=== PATIENT | male | born 1975 | race African-American/Black ===

== ENCOUNTER 2023-08-14 08:14 | Outpatient (CLI) | payer OTHER, SELFPAY ==
--- NOTE | 2023-08-17 15:04 | WPDHOMESLEEP ---
Sleep Study - Home Unattended Date of Study: 08/14/23 Ordering Provider: Supa Souza, HR CONSULTANT Interpreting Provider: Arabella Feng MD Home Sleep Study Type: Watch PAT Height: 1.7 m Weight: 129.274 kg Body Mass Index: 44.6 Neck Circumference (inches): 18 [place]: 1 Reason for Sleep Study Snoring, witnessed apneas, restless sleep and excessive daytime sleepiness Sleep History Marv Bergman is a 48-year-old man with snoring and excessive daytime sleepiness. He did not complete the usual sleep questionnaire, however his office note contains several comments regarding his sleep. He complained of snoring, witnessed apneas, restless sleep and waking up not feeling rested. He has excessive daytime sleepiness. He also complained of excessive movements of his limbs during sleep. He was started on Atrovent nasal spray 0.03% 2 sprays each nostril twice a day. His medical comorbidities include hypertension, congestive heart failure, diabetes with neuropathy. He had a prior sleep study in 2020 at [facility] with symptoms worsening since then. His body mass index is currently 44.63. He had a PAP machine that he stopped using during the recent recall. He does use a sleeping pill at night, trazodone. Habits:??Tobacco: former smoker Alcohol:none PMFSH Past Medical History Medical History Adrenal nodule Congestive heart failure History of blood transfusion Hyperlipidemia Hypertension Microalbuminuria Obesity Peripheral neuropathy Type 2 diabetes mellitus Family History Family History Other Cerebrovascular accident Coronary artery disease Hypertension Social History Social History Smoking packs per day: 2 Smoking cigarettes per day: 40.0 Years smoked: 30 Smoking pack-years: 60.00 Smoking status: Former smoker Tobacco type: cigarettes Alcohol intake: never Substance use: never Do You Feel Safe in your Home?: Yes Lack of Transportation: No Lack of Food: Never True Current Housing: I Have Housing Concerned About Future Housing: No Difficulty Paying Gas/Electric Bills: No Difficulty Paying for Meds: No Currently Unemployed: YES Education: High School Diploma/GED Difficulty w/ Childcare or Family Care: No Medications Home Medications Medication Instructions Recorded Confirmed Type furosemide 40 mg tablet 40 mg PO QAM 01/13/20 07/03/23 History gabapentin 400 mg capsule 400 mg PO BID 01/13/20 07/03/23 History lisinopril 40 mg tablet 40 mg PO DAILY 01/13/20 07/03/23 History naproxen sodium 220 mg capsule 440 mg PO Q12H 01/13/20 07/03/23 History (Aleve) dapagliflozin propanediol 10 mg See Rx Instructions .Route 03/27/23 07/03/23 Rx tablet (Farxiga) .COMPLEX #90 tabs blood sugar diagnostic (OneTouch #100 ea 07/03/23 07/03/23 Rx Ultra Test strips) blood-glucose sensor (Pylba G7 #9 ea 07/03/23 07/03/23 Rx Sensor device) dexamethasone 0.5 mg tablet 1 mg PO ONCE #2 tabs 07/03/23 07/03/23 Rx glucagon 1 mg/0.2 mL subcutaneous 1 mg (0.2 mL) subcut ONCE #0.4 mL 07/03/23 07/03/23 Rx auto-injector (Gvoke HypoPen 2-Pack) glucose 4 gram chewable tablet 16 g PO Q15M PRN hypoglycemia #60 07/03/23 07/03/23 Rx (Dex4 Glucose) tabs insulin aspart 10 unit subcut TIDWMEAL #45 mL 07/03/23 07/03/23 Rx (niacinamide)(U-100) 100 unit/mL(3 mL) subcutaneous pen (Fiasp FlexTouch U-100 Insulin) insulin degludec 200 unit/mL (3 30 unit (0.15 mL) subcut QAM #18 mL 07/03/23 07/03/23 Rx mL) subcutaneous pen (Tresiba FlexTouch U-200 insulin) lancets 33 gauge (OneTouch Delica #100 ea 07/03/23 07/03/23 Rx Plus Lancet) blood-glucose meter (OneTouch #1 ea 07/04/23 Rx Verio Flex Meter) pen needle, diabetic 32 gauge x #400 ea 07/04/23 Rx 5/32 (BD Ultra-Fine Susan Pen Needle)
[2023-08-17 15:27] VITALS: BMI 44.6
== END 2023-08-15 07:30 | disposition home or self-care (01) ==
LOC: ANHCSM 08:16
PROVIDERS: PCP Family Medicine; Visit Provider Nurse Practitioner Family
DX: G47.33 Obstructive sleep apnea (adult) (pediatric) (principal); Z68.41 Body mass index [BMI] 40.0-44.9, adult
CPT/HCPCS: 95800

== ENCOUNTER 2023-09-04 08:54 | Outpatient (CLI) | payer OTHER, SELFPAY ==
--- NOTE | 2023-09-09 14:16 | WPDSLEEPSTUD ---
Sleep Study Date of Study: 09/04/23 Ordering Provider: Supa Souza, VENEREAL DISEASE CONTROL HEAD Interpreting Physician: Arabella Feng MD Sleep Study Type: BiPAP Titration Height: 1.7 m Weight: 129.274 kg Body Mass Index: 44.6 Neck Circumference (inches): 18 [place]: 1 Reason for Sleep Study Snoring, witnessed apneas, restless sleep and excessive daytime sleepiness 08/14/2023, home sleep test using WatchPat showing combined CR severe obstructive and moderate central sleep apnea with Lucius-Myers respiration, AHI 88.8, central AHI 16.1, 42.6% the night Lucius-Myers respiration, desaturation to 68%. Sleep History Marv Bergman is a 48-year-old man with snoring and excessive daytime sleepiness. He did not complete the usual sleep questionnaire, however his office note contains several comments regarding his sleep. He complained of snoring, witnessed apneas, restless sleep and waking up not feeling rested. He has excessive daytime sleepiness. He also complained of excessive movements of his limbs during sleep. He was started on Atrovent nasal spray 0.03% 2 sprays each nostril twice a day. His medical comorbidities include hypertension, congestive heart failure, diabetes with neuropathy. He had a prior sleep study in 2020 at [facility] with symptoms worsening since then. His body mass index is currently 44.63. He had a PAP machine that he stopped using during the recent recall. He does use a sleeping pill at night, trazodone. Habits:??Tobacco: former smoker Alcohol:none PMFSH Past Medical History Medical History Adrenal nodule Congestive heart failure History of blood transfusion Hyperlipidemia Hypertension Microalbuminuria Obesity Peripheral neuropathy Type 2 diabetes mellitus Family History Family History Other Cerebrovascular accident Coronary artery disease Hypertension Social History Social History Smoking packs per day: 2 Smoking cigarettes per day: 40.0 Years smoked: 30 Smoking pack-years: 60.00 Smoking status: Former smoker Tobacco type: cigarettes Alcohol intake: never Substance use: never Do You Feel Safe in your Home?: Yes Lack of Transportation: No Lack of Food: Never True Current Housing: I Have Housing Concerned About Future Housing: No Difficulty Paying Gas/Electric Bills: No Difficulty Paying for Meds: No Currently Unemployed: YES Education: High School Diploma/GED Difficulty w/ Childcare or Family Care: No Medications Home Medications Medication Instructions Recorded Confirmed Type furosemide 40 mg tablet 40 mg PO QAM 01/13/20 07/03/23 History gabapentin 400 mg capsule 400 mg PO BID 01/13/20 07/03/23 History lisinopril 40 mg tablet 40 mg PO DAILY 01/13/20 07/03/23 History naproxen sodium 220 mg capsule 440 mg PO Q12H 01/13/20 07/03/23 History (Aleve) blood sugar diagnostic (BandcampTouch #100 ea 07/03/23 07/03/23 Rx Ultra Test strips) blood-glucose sensor (DexPrognomix G7 #9 ea 07/03/23 07/03/23 Rx Sensor device) dexamethasone 0.5 mg tablet 1 mg PO ONCE #2 tabs 07/03/23 07/03/23 Rx glucagon 1 mg/0.2 mL subcutaneous 1 mg (0.2 mL) subcut ONCE #0.4 mL 07/03/23 07/03/23 Rx auto-injector (Gvoke HypoPen 2-Pack) glucose 4 gram chewable tablet 16 g PO Q15M PRN hypoglycemia #60 07/03/23 07/03/23 Rx (Dex4 Glucose) tabs insulin aspart 10 unit subcut TIDWMEAL #45 mL 07/03/23 07/03/23 Rx (niacinamide)(U-100) 100 unit/mL(3 mL) subcutaneous pen (Fiasp FlexTouch U-100 Insulin) insulin degludec 200 unit/mL (3 30 unit (0.15 mL) subcut QAM #18 mL 07/03/23 07/03/23 Rx mL) subcutaneous pen (Tresiba FlexTouch U-200 insulin) lancets 33 gauge (OneTouch Delica #100 ea 07/03/23 07/03/23 Rx Plus Lancet) blood-glucose meter (BandcampTouch #1 ea 07/04/23 Rx Verio Flex Meter)
[2023-09-09 14:22] VITALS: BMI 44.6
== END 2023-09-05 06:22 | disposition home or self-care (01) ==
LOC: ANHCSM 08:58
PROVIDERS: PCP Family Medicine; Visit Provider Nurse Practitioner Family
DX: G47.30 Sleep apnea, unspecified (principal); G47.33 Obstructive sleep apnea (adult) (pediatric)
CPT/HCPCS: 95811